=== PATIENT | male | born 1980 | race Caucasian/White ===

== ENCOUNTER 2017-11-27 16:31 | Inpatient (IN) | payer BC, OTHER ==
[~2017-11-27] VITALS: Ht 182.9 cm; Wt 95.3 kg
[2017-11-27] MEDS ORDERED: ONDANSETRON 4 MG/2 ML VIAL IM PRN (18:15)
[2017-11-27] MEDS ORDERED: DICYCLOMINE HCL 20 MG TABLET PO PRN (18:15)
[2017-11-27] MEDS ORDERED: ACETAMINOPHEN 325 MG TABLET PO PRN (18:15)
[2017-11-27] MEDS ORDERED: THIAMINE HCL 200 MG/2 ML VIAL IM ONE (18:15)
[2017-11-27] MEDS ORDERED: diphenhydrAMINE 50 MG CAPSULE PO PRN (18:15)
[2017-11-27] MEDS ORDERED: DOCUSATE SODIUM 250 MG CAPSULE PO PRN (18:15)
[2017-11-27] MEDS ORDERED: MAG HYDROX/AL HYDROX/SIMETH 30 ML LIQUID UDC PO PRN (18:15)
[2017-11-27] MEDS ORDERED: LORAZEPAM 2 MG/1 ML VIAL IM PRN (18:15)
[2017-11-27] MEDS ORDERED: LORAZEPAM 1 MG TABLET PO PRN (18:15)
[2017-11-27] MEDS ORDERED: MIRALAX 17 GM POWD.PACK PO PRN (18:15)
[2017-11-27] MEDS ORDERED: BUPRENORPHINE HCL 2 MG TAB.SUBL SL PRN (18:15)
[2017-11-27] MEDS ORDERED: LOPERAMIDE HCL 2 MG CAPSULE PO PRN ×2 (18:15)
--- NOTE | 2017-11-27 18:40 | NUR ---
PRE ADMISSION 37 year old male at intake office, reports he is from [place] but has been living in [place] for 6 months. patient is alert and oriented x4, noted hyperverbal, restless, pacing, nausea, tremulous, patient also with one episode of vomiting during intake assessment. BP: 138/89 P: 102 T: 98.0 R: 16 02 SAT: 99% room air. Patient reports no know drug or food allergies. Patient reports: 1. Kratom- 50grams daily PO since June 2017-present, patient reports began using "years ago" last used: 11/27/2017 15 grams at 1730. 2. heroin- 2 grams smoked/snorted 7 times in a two week period. Per patient relapsed two weeks ago. Per patient began using heroin at the age of 32. last used 1 gram smoked of heroin 11/27/2017 at 1500. 3. Xanax- patient report only two 2mg PO one time, per patient has never taken before it "was a one time thing" Patient reports has been in 6 detoxes, 2 rehabs, and 4 sober livings. Patient did not bring any home medications. Patient denies any pre existing medical/psychiatric conditions. patient denies any seizure history. Patient reports history of family substance abuse: brother, currently sober now. Reports his primary care physician is Dr. Rowan in [place]. Patient was educated regarding all unit policies and procedures with good verbal understanding.
--- NOTE | 2017-11-27 19:00 | NUR ---
ADMISSION NOTE Pt arrived on the unit at 1855 on 11/27/17 for opiate, ETOH and Kratom withdrawal. Pt reports that he ingests such high amounts of Kratom and states he continues to use it because he likes "the high" it gives him and to avoid experiencing withrawal. Pt is currently intoxicated from heroin, kratom and xanax. Skin and body check completed by day shift nurse, skin intact and no contrabound found. Pt is 6'0 and weighs 210 lbs. Initial COWS 7 and CIWA 10. Vital signs- BP: 107/85, HR: 82, 02: 98%, R:18, T: 97.6, Pain: 4/10. Pt is full code, NKA, regular diet and on fall/seizure precautions. No denied medical or seizure history. Pt did not bring any home medications, but reports taking Trazodone for sleep at an unspecified dose. Pt denies being hospitalized or in correction in past 30 days, does not qualify for MRSA swab. Pt reports that he smokes approximately 1/2 pack cigarettes daily. PCP is Dr. Rowan in [place]. Pt used to live in [place] with his family, but moved to [place] 6 months ago to be at a Sober living facility. Pt refuses pneumonia and flu vaccines. Substance Use History: 1. Heroin (Oral inhalation) 2 g intermittent non-daily, last intake of 1 g on 11/27/17 at 1500, at this rate for 2 weeks. 2. Kratom PO 50 g daily, last intake of 15 g on 11/27/17 at 1730, at this rate for 4 months. 3. Xanax PO 2 mg "It was my first or second time taking it ever," last intake of 2 mg on 11/27/17 at 1730. 4. ETOH (Vodka, whiskey or wine) "A few drinks about 2-5 days a week," last intake of "a few drinks" on 11/25/17, at this rate for 4 months. 5. Marijuana (vaporizer) unspecified amounts daily, last intake of unspecified amount on 11/27/17, at this rate for 2 months. Pt reports multiple treatment histories: Detox x 6, Rehab x 2, Sober Living x 4. Last treatment facility was at [facility] in [place] between December-March 2017. Pt unable to recall information of other treatment facilities. Pts longest sober period was for 7 months in mid 2014. Pts mother has medical hx of pancreatitis and his brother is in recovery from opiate abuse. Pt reports struggling with frequent relapses, states "I just love the feeling of being high." Pt is A&O x 4, speech is coherent and hyperverbal, pt is ambulatory with steady gait. Pt presents with anxiety, restlessness, racing thoughts, sweats, flushed skin, tremors, intermittent nausea, intermittent stomach cramps, one episode of vomiting during intake process, difficulty concentrating, flat affect and tactile disturbances (Itching). Abdomen is soft, non tender. Bowel sounds are active in all 4 quadrants. Last BM today, denies constipation or diarrhea. Denies SI/HI. PEERLA. Respirations even and unlabored. Lungs clear in all lung [place]. Denies chest pain or SOB. Pt oriented to room and educated patient about smoking and unit rules, how to use call light, pt verbalized understanding. Safety measures in place, side rails up x 2, bed in lowest position. Call light within reach.
[2017-11-27 20:00] VITALS: BP 104/80
[2017-11-27] MEDS ORDERED: NICOTINE POLACRILEX 4 MG GUM-PK OF TEN BC PRN (21:30)
[2017-11-27] MEDS ORDERED: NICOTINE 14 MG/24HR PATCH TD PRN (21:30)
[2017-11-27 21:40] LABS: *AMPHETAMINE, URINE NEGATIVE (NEGATIVE); *BARBITURATE, URINE NEGATIVE (NEGATIVE); *CANNABINOID, URINE POSITIVE (NEGATIVE); *COCCAINE, URINE NEGATIVE (NEGATIVE); *OPIATE, URINE POSITIVE (NEGATIVE); *PHENCYCLIDINE SCREEN,URINE NEGATIVE (NEGATIVE)
[2017-11-27 23:03] LABS: BASOPHILS # (AUTO) 0.1 K/uL (0.0-8.0); BASOPHILS % (AUTO) 0.6 % (0.0-2.0); EOSINOPHILS # (AUTO) 0.2 K/uL (0.0-0.7); EOSINOPHILS % (AUTO) 2.1 % (0.0-7.0); HEMATOCRIT 41.4 % (36.7-47.1); HEMOGLOBIN 14.1 g/dL (12.5-16.3); LYMPHOCYTES # (AUTO) 2.8 K/uL (20.0-40.0); LYMPHOCYTES % (AUTO) 24.7 % (20.5-51.5); MEAN CORPUSCULAR HEMOGLOBIN 29.3 uug (23.8-33.4); MEAN CORPUSCULAR HGB CONC 34 g/dL (32.5-36.3); MEAN CORPUSCULAR VOLUME 85.9 fL (73.0-96.2); MONOCYTES # (AUTO) 1.5 K/uL (2.0-10.0); MONOCYTES % (AUTO) 12.9 % (0.0-11.0); NEUTROPHILS # (AUTO) 6.8 K/uL (1.8-8.9); NEUTROPHILS % (AUTO) 59.7 % (38.5-71.5); PLATELET COUNT (AUTO) 235 K/uL (152-348); RED BLOOD CELL COUNT(AUTO) 4.81 MIL/uL (4.06-5.63); WHITE BLOOD COUNT (AUTO) 11.4 K/uL (3.6-10.2)
[2017-11-27 23:23] LABS: BILIRUBIN,TOTAL 0.8 mg/dL (0.2-1.0); CREATININE 1.3 mg/dL (0.6-1.3); MAGNESIUM 1.9 mg/dL (1.8-2.4); POTASSIUM 3.8 mmol/L (3.5-5.1); TOTAL PROTEIN, SERUM 7.9 g/dL (6.4-8.2)
[2017-11-27] MEDS: IBUPROFEN 600 MG TABLET PO PRN (23:42)
[2017-11-27] MEDS: ONDANSETRON ODT 4 MG TAB.RAPDIS SL PRN (23:43)
--- NOTE | 2017-11-27 23:43 | NUR ---
PRN MOTRIN, ZOFRAN ODT, BENTYL AND ATIVAN 2 MG ADMINISTRATION Pt reports headache 4/10, nausea, stomach cramps and presents with anxiety, irritability, tremors, sweats, flushed skin, tactile disturbances (itching). CIWA 19, orders to give PRN Ativan 2 mg. Safety measures in place. Call light within reach. Will continue to monitor.
[2017-11-28] VITALS: BP 107/85
--- NOTE | 2017-11-28 00:13 | NUR ---
PRN ZOFRAN ODT REASSESSMENT Pt laying in bed with eyes closed, medication noted effective. Respirations even and unlabored. Safety measures in place. Call light within reach. Will continue to monitor.
--- NOTE | 2017-11-28 00:43 | NUR ---
PRN MOTRIN, BENTYL AND ATIVAN 2 MG REASSESSMENT Pt laying in bed with eyes closed, medications noted effective. Respirations even and unlabored. Safety measures in place. Call light within reach. Will continue to monitor.
[2017-11-28] MEDS ORDERED: TRAZ-144 PO (00:46)
[2017-11-28 04:00] VITALS: BP 118/84
--- NOTE | 2017-11-28 04:00 | NUR ---
COWS/CIWA DEFERRED AND VITALS REFUSED Pt laying in bed with eyes closed, COWS/CIWA deferred, to be assessed when pt is awake per orders. Vitals refused. Respirations even and unlabored. Safety measures in place. Call light within reach. Will continue to monitor. Addendum: 11/28/17 at 0514 by EFRAÍN DIXON RN VITALS NOT REFUSED
--- NOTE | 2017-11-28 07:08 | NUR ---
END OF SHIFT Pt is a 37 y/o male admitted on 11/27/17 for opiate, ETOH and kratom withdrawal. Pt had PRN Ativan and Subutex available, no ordered taper at this time. Pt presented with anxiety, restlessness, racing thoughts, sweats, flushed skin, tremors, hyperverbal speech, nausea, stomach cramps, one epsiode of vomiting, headache, difficulty concentrating, flat affect and tactile disturbances (Itching). PRN Motrin, Zofran odt, Bentyl and Ativan 2 mg administered, effective in S/S of withdrawal as verbalized by pt. Last COWS 8 and CIWA 19. Pt slept 6 hours. Intake 500 ml, void x 1, stool x 0. Safety measures in place. Call light within reach. Pts needs have been met. Endorsed to day shift nurse.
--- NOTE | 2017-11-28 07:28 | NUR ---
START OF SHIFT RECEIVED PT LAYING IN BED, A/OX4, RESPIRATIONS EVEN AND UNLABORED. PT APPEARS DISHEVELED, HAS A WORRIED AFFECT. PT PRESENTED WITH RESTLESSNESS, SWEATING, ANXIETY, AGITATION, FACIAL FLUSHING, PILOERECTION OF THE SKIN. PT REPORTS HAVING NAUSEA, STOMACH CRAMPS, ANXIETY, CHILLS AND TREMORS ARE SEEN. ENCOURAGED PT TO INCREASE FLUIDS TO PROMOTE HYDRATION AND FACILITATE IN DETOX. SIDE RAILS X2, BED IN LOWEST POSITION. CALL LIGHT WITHIN REACH. SAFETY MEASURES IN PLACE. WILL CONTINUE TO MONITOR.
[2017-11-28 08:00] VITALS: BP 117/55
[2017-11-28] MEDS: METHOCARBAMOL 750 MG TABLET PO PRN ×2 (08:39→20:36)
[2017-11-28] MEDS: ONDANSETRON ODT 4 MG TAB.RAPDIS SL PRN (08:39)
--- NOTE | 2017-11-28 08:39 | NUR ---
PRN ZOFRAN AND ROBAXIN GIVEN FOR NAUSEA AND GENERALIZED BODY ACHES. WILL MONITOR FOR EFFECTIVENESS.
[2017-11-28] MEDS ORDERED: THIAMINE HCL 100 MG TABLET PO SCH (09:00)
[2017-11-28] MEDS ORDERED: FOLIC ACID 1 MG TABLET PO SCH (09:00)
[2017-11-28] MEDS ORDERED: MULTIVITAMINS,THERAPEUTIC TABLET PO SCH (09:00)
[2017-11-28] MEDS ORDERED: GABAPENTIN 300 MG CAPSULE PO SCH (09:00)
[2017-11-28] MEDS ORDERED: TUBERCULIN,PURIF.PROT.DERIV. 5 TU/0.1 ML TEST ID ONE (09:00)
--- NOTE | 2017-11-28 09:40 | NUR ---
REASSESSMENT PT IS LAYING IN BED SLEEPING. RESPIRATIONS EVEN AND UNLABORED. WILL CONTINUE TO MONITOR.
[2017-11-28 12:00] VITALS: BP 113/61
[2017-11-28] MEDS: CLONIDINE HCL 0.1 MG TABLET PO PRN (13:03)
--- NOTE | 2017-11-28 13:03 | NUR ---
PRN CLONIDINE 0.1 MG PO PRN GIVEN FOR SWEATING, AND CHILLS. WILL MONITOR FOR EFFECTIVENESS.
--- NOTE | 2017-11-28 14:05 | NUR ---
REASSESSMENT PT IS LAYING IN BED WITH EYES CLOSED, SLEEPING. RESPIRATIONS ARE EVEN AND UNLABORED. WILL CONTINUE TO MONITOR AND PROVIDE SUPPORT.
[2017-11-28 16:00] VITALS: BP 100/62
[2017-11-28] MEDS: IBUPROFEN 600 MG TABLET PO PRN (16:40)
[2017-11-28] MEDS: LORAZEPAM 1 MG TABLET PO PRN (16:40)
--- NOTE | 2017-11-28 16:40 | NUR ---
PRN PT C/O INCREASED ANXIETY, SWEATING, PALPITATIONS, RESTLESSNESS AND GENERALIZED BODY ACHES. CIWA 12. ATIVAN 1 MG PO PRN AND IBUPROFEN GIVEN. WILL MONITOR FOR EFFECTIVENESS. Addendum: 11/28/17 at 1837 by CONNOR QUESADA RN ANXIETY 05/04
--- NOTE | 2017-11-28 17:40 | NUR ---
REASSESSMENT PT STATED ATIVAN AND IBUPROFEN WAS EFFECTIVE FOR BODY ACHES AND FOR INCREASED ANXIETY NOW 01/02. WILL CONTINUE TO MONITOR AND PROVIDE SUPPORT.
[2017-11-28] MEDS ORDERED: BUPRENORPHINE HCL 2 MG TAB.SUBL SL PRN (18:30)
--- NOTE | 2017-11-28 18:50 | NUR ---
END OF SHIFT LAST COWS 12 AND CIWA 12 @1600. PT PRESENTED WITH INCREASED S/S OF W/D THROUGHOUT SHIFT. PT HAS POOR APPETITE AND ONLY ATE 25% OF MEALS. PT WAS IN ROOM RESTING AND HAS BEEN EXCUSED FROM GROUPS. PT HAD ATIVAN 1 MG, ZOFRAN, ROBAXIN, CLONIDINE PRN DURING SHIFT; PT VERBALIZED MEDS WERE EFFECTIVE. ENCOURAGED PT TO INCREASE FLUIDS TO PROMOTE HYDRATION AND FACILITATE IN DETOX. ALL SAFETY MEASURES IN PLACE. WILL GIVEN ENDORSEMENT AND PERTINENT DATA TO LINE CAMERA OPERATOR NURSE.
[2017-11-28 20:00] VITALS: BP 103/64
--- NOTE | 2017-11-28 20:00 | NUR ---
START OF SHIFT NOTE RECEIVED REPORT FROM DAY SHIFT NURSE. PATIENT IS A 37 YEAR OLD MALE ADMITTED FOR OPIATE/ETOH/KRATOM WITHDRAWAL. PATIENT IS ON PRN SUBUTEX AND PRN ATIVAN. PATIENT WAS GIVEN PRN ATIVAN, MOTRIN, CLONIDINE, ZOFRAN AND ROBAXIN. LAST COWS 12 AND CIWA 12. RECEIVED PATIENT IN THE ROOM. PATIENT WITH FLAT AFFECT, REPORTS TIRED, SWEATING, CHILLS AND MUSCLE ACHES 04/03. SAFETY MEASURES IN PLACE. CALL LIGHT IN REACH. WILL CONTINUE TO MONITOR.
[2017-11-28] MEDS: GABAPENTIN 300 MG CAPSULE PO SCH (20:36)
--- NOTE | 2017-11-28 20:36 | NUR ---
PRN ROBAXIN ADMINISTRATION PATIENT C/O GENERALIZED MUSCLE ACHES. WILL MONITOR FOR EFFECTIVENESS
[2017-11-28] MEDS ORDERED: TRAZODONE 50 MG TABLET PO SCH (21:00)
--- NOTE | 2017-11-28 21:36 | NUR ---
PRN ROBAXIN RE-ASSESSMENT PATIENT STATES ROBAXIN IS HELPFUL AND EFFECTIVE. NO PAIN AT THIS TIME
[2017-11-28] MEDS ORDERED: BUPRENORPHINE HCL 2 MG TAB.SUBL SL ONE (22:30)
[2017-11-28] MEDS ORDERED: LORAZEPAM 1 MG TABLET PO ONE (22:30)
[2017-11-29] VITALS: BP 116/61
--- NOTE | 2017-11-29 04:00 | NUR ---
COWS/ CIWA DEFERRED PATIENT SLEEPING. VS REFUSED. RESPIRATION EVEN AND UNLABORED. SAFETY MEASURES IN PLACE. CALL LIGHT IN REACH. WILL CONTINUE TO MONITOR.
--- NOTE | 2017-11-29 07:12 | NUR ---
START OF SHIFT NOTE PATIENT SLEPT 5 HOURS. FLUID INTAKE 240 ML. VOIDED X 2. NO BM . PATIENT IS ON PRN SUBUTEX AND PRN ATIVAN. PATIENT WITH FLAT AFFECT, REPORTED TIRED, SWEATING, CHILLS AND MUSCLE ACHES 7 BEGINNING OF SHIFT. PATIENT WAS GIVEN PRN ROBAXIN AND EFFECTIVE. PATIENT WAS GIVEN ONE TIME ATIVAN AND SUBUTEX PER DR. ELMORE. PATIENT COMPLIANT WITH MEDICATION AND TREATMENT PLAN. SAFETY MEASURES IN PLACE. CALL LIGHT IN REACH. WILL CONTINUE TO MONITOR. LAST COWS 8 AND CIWA 8.
--- NOTE | 2017-11-29 07:20 | NUR ---
Start Of Shift Report received, Pt is a 37 year old male admitted for Heroin, Kratom and ETOH withdrawals. Pt is currently laying in bed watching TV, upon greeting the patient he stated "Im not feeling too good, the symptoms are starting to take a toll" Pt assessed, educated pt in his medications, pt was not able to concentrate properly due to feeling uncomfortable. Pt is not currently on a taper but has some PRN medications in case of withdrawals, PRN Robaxin and a one time dose of Ativan 2mg and Subutex 4mg given last night which were effective. Encouraged fluids to help facilitate with the detox process. Patient noted to have flat affect and with a sad demeanor fine tremors noted. Fall, universal, seizure and safety precautions in place. Call light within reach. Latest COWS=8, CIWA=57 taken at 0400 slept for a total of 5 hours will continue to monitor pt and provide care.
[2017-11-29 08:00] VITALS: BP 111/55
[2017-11-29] MEDS: GABAPENTIN 300 MG CAPSULE PO SCH ×3 (08:52→22:14)
[2017-11-29] MEDS: LORAZEPAM 1 MG TABLET PO PRN (08:57)
--- NOTE | 2017-11-29 08:58 | NUR ---
PRN ATIVAN Pt C/O withdrawals including anxiety, sweats, shakiness, restlessness with a CIWA of 8, PRN Ativan 1mg administered, will continue to monitor
--- NOTE | 2017-11-29 09:58 | NUR ---
PRN REASSESSMENT Medication partially effective, pt stated "I feel better but still having some withdrawals" MD notified and aware MD will see Pt. all needs met will continue to monitor
[2017-11-29 12:00] VITALS: BP 112/76
[2017-11-29 12:07] LABS: HEPATITIS B SURFACE AG Negative (Negative)
[2017-11-29] MEDS: LORAZEPAM 1 MG TABLET PO SCH ×2 (12:33→17:22)
[2017-11-29] MEDS: BUPRENORPHINE HCL 2 MG TAB.SUBL SL SCH ×3 (12:33→22:14)
[2017-11-29 16:00] VITALS: BP 120/78
--- NOTE | 2017-11-29 19:02 | NUR ---
End Of Shift Report Given Vitals monitored Q4 hours. Pt is on a modified Subutex and Ativan taper tolerating well. Experience withdrawal symptoms during the shift, Plan of care followed, Pt remained in his room most of the day being isolated but did attend some groups and activities. Pt ate all of his meals. Pt presented with tremors, sweats, anxiety, restlessness, fatigue, and a headache. Encouraged pt to attend group and participate in activities. Encouraged pt to drink plenty of fluids to help facilitate the detox process. Pt's last CIWA was a 8 and last COWS was a 8 , Pt received PRN Ativan 1mg for CIWA of 8 which pt reported being effective, will endorse to weed cutter nurse.
--- NOTE | 2017-11-29 19:09 | NUR ---
Start of shift note Received report from day shift nurse. Pt is a 37 yo male, A+Ox4, presenting to [facility] for ETOH/Opiate withdrawal. Pt noted to be anxious, restless, and agitated. Pt is on modified Ativan and Subutex tapers, tolerated well. Respirations even and unlabored. Will continue to monitor.
[2017-11-29 20:16] VITALS: BP 149/83
[2017-11-29] MEDS ORDERED: LORAZEPAM 1 MG TABLET PO SCH (21:00)
[2017-11-29] MEDS ORDERED: TRAZODONE 100 MG TABLET PO SCH (21:00)
[2017-11-29] MEDS ORDERED: TRAZODONE 50 MG TABLET PO SCH (21:00)
[2017-11-30 00:40] VITALS: BP 136/88
[2017-11-30 04:38] VITALS: BP 128/84
--- NOTE | 2017-11-30 06:57 | NUR ---
End of shift note Pt was continuously noted with restlessness, agitation, and anxiety during shift. Pt tolerated modified Ativan and Subutex tapers well. Pt was out of room frequently to go smoke on smoking patio, to get food from kitchen area, and to interact with other patients in recreational room. Pt was not given any PRNs during shift. Pt slept for a total of 6 HRS. Last COWS: 8 and Last CIWA: 8 @0400. Respirations even and unlabored. Will endorse to day shift nurse.
--- NOTE | 2017-11-30 07:30 | NUR ---
START OF SHIFT Pt is a 37 yr old male, AA&Ox4. Pt was admitted on 11/27/17 for Opiate/Benzo/ETOH withdrawal and is on a 2 day Subutex and Ativan taper as ordered. Medication michaelle well. Received report from night manager nurse. No PRN's were given during the night. Last COWS score was 8 and CIWA score was 8 at 0400. Pt slept for 6 hrs. Pt is currently in bed resting with respirations even and unlabored. Skin is intact, warm and moist to touch. Pt is on fall and seizure precautions. Safety precautions observed. Call light is within reach. Will continue to monitor.
[2017-11-30 08:27] VITALS: BP 91/51
[2017-11-30] MEDS ORDERED: BUPRENORPHINE HCL 2 MG TAB.SUBL SL SCH (09:00)
[2017-11-30] MEDS ORDERED: LORAZEPAM 1 MG TABLET PO SCH (09:00)
[2017-11-30] MEDS: GABAPENTIN 300 MG CAPSULE PO SCH ×3 (09:25→23:30)
[2017-11-30 12:00] VITALS: BP 146/85
[2017-11-30] MEDS: ESCITALOPRAM OXALATE 10 MG TABLET PO SCH (12:50)
[2017-11-30] MEDS ORDERED: IBUP-1955 PO (15:28)
[2017-11-30] MEDS ORDERED: GABA-534 PO (15:28)
[2017-11-30] MEDS ORDERED: HYDR25CA PO (15:28)
[2017-11-30] MEDS ORDERED: DICY20TA28 PO (15:28)
[2017-11-30] MEDS ORDERED: TRAZ-147 PO (15:28)
[2017-11-30] MEDS ORDERED: METH-406 PO (15:28)
[2017-11-30] MEDS ORDERED: CLON0.1T14 PO (15:28)
[2017-11-30 16:58] VITALS: BP 100/51
--- NOTE | 2017-11-30 19:10 | NUR ---
END OF SHIFT Pt is a 37 yr old male, AA&Ox4. Pt was admitted on 11/27/17 for Opiate/Benzo/ETOH withdrawal and has completed a modified Subutex and Ativan taper as ordered. Medication michaelle well. Pt has been cooperative with medication regimen and plan of care. Pt attended group therapy. Pt is to be [facility] to [facility]. Pt c/o anxiety but is able to cope with anxiety. Skin is intact, warm and moist to touch. Last COWS score was 7 and CIWA score was 7 at 1600. Pt is on fall and seizure precautions. Safety precautions observed. Call light is within reach.
--- NOTE | 2017-11-30 19:12 | NUR ---
Start of shift note Received report from day shift nurse. Pt is a 37 yo male, A+Ox4, presenting to [facility] for ETOH/Benzo/Opiate withdrawal. Pt noted with agitation, anxiety, restlessness, and messy room. Pt has completed modified Ativan and modified Subutex tapers, tolerated well, and is due for discharge tomorrow. Respirations even and unlabored. Will continue to monitor.
[2017-11-30 20:25] VITALS: BP 113/63
[2017-11-30] MEDS ORDERED: TRAZODONE 100 MG TABLET PO SCH (21:00)
[2017-11-30] MEDS: CLONIDINE HCL 0.1 MG TABLET PO PRN (23:31)
--- NOTE | 2017-11-30 23:35 | NUR ---
PRN Clonidine and Tylenol Pt c/o headache and noted with b/p 142/88. PRN Clonidine and Tylenol given and tolerated well. Will reassess within 1 HR. Will continue to monitor.
--- NOTE | 2017-12-01 00:30 | NUR ---
PRN Clonidine and Tylenol Reassessment Medications effective. Pt expresses reduction in headache. B/P= 137/88. No s/s of ASE noted at this time. Respirations even and unlabored. Will continue to monitor.
[2017-12-01 00:41] VITALS: BP 137/88
[2017-12-01 04:44] VITALS: BP 134/82
--- NOTE | 2017-12-01 06:54 | NUR ---
End of shift note Pt was continuously noted with agitation, anxiety, and restlessness. Pt was out of room frequently to get food from kitchen, to go smoke on smoking patio, and to interact with other patients in recreational room. Pt was given PRN Clonidine and Tylenol for elevated b/p and headache @2335. No s/s of ASE noted. Pt has completed modified Ativan and modified Subutex tapers and is due for discharge today. Pt slept for a total of 7 HRS. Last COWS: 4 and Last CIWA: 4 @0400. Respirations even and unlabored. Will endorse to day shift nurse.
--- NOTE | 2017-12-01 07:30 | NUR ---
START OF SHIFT Pt is a 37 yr old male, AA&Ox4. Pt was admitted on 11/27/17 for Opiate/Benzo/ETOH withdrawal and completed a modified Subutex and Ativan taper as ordered. Medication michaelle well. Received report from haul cane brakeman nurse. Pt received Clonidine PRN and Tylenol PRN during the night. Medication was effective. Pt slept for 7 hrs. Last COWS score was 4 and CIWA score was 4 at 0400. Pt is currently c/o anxiety due to discharge but is able to cope with anxiety level. Skin is intact, warm and moist to touch. No tremors seen or felt. Pt is on fall and seizure precautions. Safety precautions observed. Call light is within reach. Will continue to monitor.
[2017-12-01 08:00] VITALS: BP 112/53
[2017-12-01] MEDS: ESCITALOPRAM OXALATE 10 MG TABLET PO SCH (09:13)
[2017-12-01] MEDS: GABAPENTIN 300 MG CAPSULE PO SCH (09:13)
--- NOTE | 2017-12-01 09:45 | NUR ---
DISCHARGE NOTE Pt is a 37 yr old male, AA&Ox4. Pt was admitted on 11/27/17 for Opiate/Benzo/ETOH withdrawal and completed a modified Subutex and Ativan taper as ordered. Pt was cooperative with medication regimen and plan of care. Pt was educated on discharge summary and prescription. Pt was discharged off the unit at 0935 in stable condition to [facility]. No SI/HI noted. Discharged COWS score was 4 and CIWA score was 4. Pt left with all belongings and valuables. Pt did not bring any home medication.
== END 2017-12-01 09:35 | disposition home or self-care (01) | DRG 895 ==
LOC: SRC 18:00
PROVIDERS: ADMIT Internal Medicine; ATTEND Internal Medicine
PROC: HZ2ZZZZ Detoxification Services for Substance Abuse Treatment (ICD-10-PCS; principal; 2017-11-27)
PROC: HZ41ZZZ Group Counseling for Substance Abuse Treatment, Behavioral (ICD-10-PCS; 2017-11-29)
DX: F11.23 Opioid dependence with withdrawal (principal); D72.823 Leukemoid reaction; E86.0 Dehydration; F10.10 Alcohol abuse, uncomplicated; Y90.9 Presence of alcohol in blood, level not specified; F41.9 Anxiety disorder, unspecified; G47.00 Insomnia, unspecified; Z81.1 Family history of alcohol abuse and dependence; F17.210 Nicotine dependence, cigarettes, uncomplicated; F12.20 Cannabis dependence, uncomplicated; R79.89 Other specified abnormal findings of blood chemistry; F13.239 Sedative, hypnotic or anxiolytic dependence with withdrawal, unspecified
CPT/HCPCS: 36415; 70030-TC; 80307; 80346; 80349; 80361; 83735; 85025; 86580; 86592; 86705; 86803; 87340; 87806; A4663; G0480; Q0162